=== PATIENT | male | born 1950 | race Two or more races ===

== ENCOUNTER 2022-01-18 11:45 | Inpatient (IN) | payer OTHER ==
[~2022-01-18] VITALS: Ht 175.3 cm; Wt 80.3 kg
[2022-01-18] MEDS ORDERED: HUMULIN 70100 UNIT/1 SQ (13:15)
[2022-01-18] MEDS ORDERED: COZAAR100 MG PO (13:15)
[2022-01-18] MEDS ORDERED: ARICEPT10 MG PO (13:16)
[2022-01-18] MEDS ORDERED: FLUOXETINE PO (13:18)
== END 2022-01-28 17:23 | disposition home or self-care (01) | DRG 330 ==
LOC: O/R 01-22 05:20 → SURH 01-22 05:20
PROVIDERS: ADMIT Surgery; ATTEND Surgery
PROC: 07BB4ZZ Excision of Mesenteric Lymphatic, Percutaneous Endoscopic Approach (ICD-10-PCS; 2022-01-22)
PROC: 0DTU4ZZ Resection of Omentum, Percutaneous Endoscopic Approach (ICD-10-PCS; 2022-01-22)
PROC: 0DTG4ZZ Resection of Left Large Intestine, Percutaneous Endoscopic Approach (ICD-10-PCS; principal; 2022-01-22 07:00)
PROC: 30233N1 Transfusion of Nonautologous Red Blood Cells into Peripheral Vein, Percutaneous Approach (ICD-10-PCS; 2022-01-24)
DX: C18.6 Malignant neoplasm of descending colon (principal); K92.1 Melena; D62 Acute posthemorrhagic anemia; A04.72 Enterocolitis due to Clostridium difficile, not specified as recurrent; K91.89 Other postprocedural complications and disorders of digestive system; K56.7 Ileus, unspecified; R59.0 Localized enlarged lymph nodes; R14.0 Abdominal distension (gaseous); R10.9 Unspecified abdominal pain; I10 Essential (primary) hypertension; E03.8 Other specified hypothyroidism; Z20.822 Contact with and (suspected) exposure to COVID-19; E11.9 Type 2 diabetes mellitus without complications; Z79.4 Long term (current) use of insulin; G30.8 Other Alzheimer's disease; F02.80 Dementia in other diseases classified elsewhere, unspecified severity, without behavioral disturbance, psychotic disturbance, mood disturbance, and anxiety

== ENCOUNTER 2022-07-17 07:07 | Day surgery (SDC) | payer OTHER ==
[~2022-07-17] VITALS: Ht 175.3 cm; Wt 81.6 kg
[~2022-07-17 07:07] MED LIST: ARICEPT10 MG PO; COZAAR100 MG PO; FLUOXETINE PO; HUMULIN 70100 UNIT/1 SQ; SYNTH PO
== END 2022-07-17 13:45 | disposition home or self-care (01) ==
LOC: CIR.AMB 07:07
PROVIDERS: ATTEND Surgery
DX: C73 Malignant neoplasm of thyroid gland (principal); Z53.09 Procedure and treatment not carried out because of other contraindication